=== PATIENT | female | born 1950 | race Caucasian/White ===

== ENCOUNTER 2019-04-03 10:02 | Day surgery (SDC) | payer MEDICARE, OTHER ==
[~2019-04-03 10:02] MED LIST: ACETAMINOPHEN 1,000 MG/100 ML BTL IVPB ONE
[2019-04-03] MEDS ORDERED: PROPOFOL 10 MG/ML VIAL IV ONE (10:03)
[2019-04-03] MEDS ORDERED: MIDAZOLAM HCL 2MG/2ML VIAL IV ONE (10:03)
[2019-04-03] MEDS ORDERED: LIDOCAINE 2% MDV (20MG/ML) 20ML VIAL IV ONE (10:03)
[2019-04-03] MEDS ORDERED: FENTANYL PF 100MCG/2ML VIAL IV ONE (10:03)
[2019-04-03] MEDS ORDERED: RINGERS SOLUTION,LACTATED 1,000 ML IV ONE (10:30)
[2019-04-03] MEDS ORDERED: LIDOCAINE 1% MPF 100MG/10ML STERILE-PAK AMPULE SQ ONE (12:10)
--- NOTE | 2019-04-08 10:11 | Operative Note ---
DATE OF SURGERY: 04/03/2019 PREOPERATIVE DIAGNOSIS: Right trigger thumb. POSTOPERATIVE DIAGNOSIS: Right trigger thumb. OPERATION: Tenotomy A1 joanne right thumb using a 2.5 loupe magnification. SURGEON: Isaiah Lazcano D.O. REFERRING PHYSICIAN: Fili oHpper M.D, [place] ANESTHESIA: Local. PROCEDURE: This 68-year-old female was taken to the operating room and placed in the supine position on the operating room table. Assisted local anesthetic was administered and the right upper extremity was elevated. It was prepped with Hibiclens and draped in the usual sterile fashion, exsanguinated and the tourniquet around the forearm was elevated to 200 mmHg. 1% Xylocaine plain was used as a local anesthetic and an injection was made in the flexor crease of the right thumb and following satisfactory anesthetic, a transverse incision was made in the flexor crease of the metacarpal phalangeal joint and dissection carried down through the skin and subcutaneous tissue. The proximal edge of the A1 joanne was easily identified. It was then split from its proximal to its distal margin under direct vision. Bulbous appearance of the flexor pollicis longus tendon was identified, however once we had opened the canal, it moved freely without any catching or locking. The wound was irrigated with lactated Ringer's solution and closed with 6-0 nylon sutures. Sterile dressings were applied. The tourniquet released. The patient taken to the recovery room in satisfactory condition. GROSS PATHOLOGY: There was a bulbous appearance of the flexor pollicis longus at the proximal edge of the A1 joanne, restricting motion of the tendon, typical of trigger finger. [facility]
== END 2019-04-03 13:00 | disposition home or self-care (01) ==
LOC: SUR 10:02
PROVIDERS: ATTEND Orthopaedic Surgery
DX: M65.311 Trigger thumb, right thumb (principal); C50.919 Malignant neoplasm of unspecified site of unspecified female breast; E03.9 Hypothyroidism, unspecified
CPT/HCPCS: 26055; 01810; 93005; J3010; J3490; J7120